=== PATIENT | female | born 1960 | race Caucasian/White ===

== ENCOUNTER → 2020-02-04 09:12 | Outpatient (CLI) | payer OTHER, SELFPAY ==
--- NOTE | ~2020-02-04 | US_ITS ---
EXAMINATION: US right upper quadrant DATE: 02/04/2020 09:36 INDICATION: Abnormal liver function tests. TECHNIQUE: Multiple grayscale and Doppler ultrasound images of the abdomen were obtained. COMPARISON: None FINDINGS: The visualized portions of the head of the pancreas are normal. The liver is normal without focal lesion. No liver surface nodularity. There is normal flow in main portal vein. The gallbladder is absent. The common duct is normal and measures 3 mm. IMPRESSION: 1. Normal right upper quadrant ultrasound status post cholecystectomy. Reviewed, dictated and finalized at location A.
== END ==
DX: R74.8 Abnormal levels of other serum enzymes (principal)
CPT/HCPCS: 76705

== ENCOUNTER 2021-06-17 07:31 | Outpatient (CLI) | payer OTHER, SELFPAY ==
--- NOTE | 2021-06-26 17:32 | WPDSLEEPSTUD ---
Sleep Study Date of Study: 06/17/21 Ordering Provider: Ramya Khoury MD Interpreting Physician: Ramya Khoury MD Sleep Study Type: Polysomnogram Height: 1.63 m Weight: 108.862 kg Body Mass Index: 41.1 Neck Circumference (inches): 17.5 [place]: 2 Reason for Sleep Study Known obstructive sleep study, CPAP fell and broke April 2021. Insurance guidelines required her to re-qualify for a new machine. Sleep History Ade Parsons is a 61-year-old female with a history of obstructive sleep apnea syndrome. Other medical diagnoses include hypertension, atrial fibrillation and GERD. She has been on CPAP for 14 years. Her initial symptoms included loud snoring with frequent waking. In 2014 she had a repeat study with an increase in the pressure to 10 cm. In April of 2021, she dropped her machine and it broke. She has been using a loaner CPAP since then. Because her machine is over 5 years old and there is not documentation of her original sleep study, she has to repeat a sleep study. She is using the loaner CPAP regularly except for the 3 nights leading up to this study, per protocol. She rarely awakens from sleep feeling short of breath. She occasionally awakens at night with heartburn, belching or coughing. She occasionally snores and occasionally this is loud enough for others to complain about it she frequently has trouble sleeping with a cold. She rarely wakes up gasping for breath at night. She occasionally has breathing problems at night observed by others. She rarely sweats excessively at night. She rarely notices her heart pounding or beating irregularly at night, she rarely falls asleep during the day and never falls asleep involuntarily. She does not fall asleep while driving. She does not have loss of muscle tone with strong emotion. She does not have daytime difficulties due to excessive sleepiness. She does not feel paralyzed on waking or falling asleep. She occasionally has vivid dreamlike scenes upon awakening or falling asleep. She does not feel afraid to go to sleep. She occasionally has nightmares. She rarely remembers her dreams. She occasionally has racing thoughts. She does not feel sad or depressed. She occasionally has anxiety. She occasionally has muscular tension and occasionally notices parts of her body jerking. She rarely kicks at night. She frequently has crawling and aching feelings in her legs. She occasionally has leg pain during the night. She rarely has morning jaw pain. She rarely grinds her teeth during sleep. She rarely is bothered by pain during the day and rarely is awakened by pain at night. She frequently wakes up feeling stiff in the morning. She rarely wakes up with sore achy muscles. She rarely wakes up with pain in the neck and spine. She takes antacids regularly. Normal bedtime is 11:00 p.m. falling asleep within 20-30 minutes, typically waking 2-3 times at night. When she does wake at night, she walks around, tries to recall a favorite vacation place, relax and retuen to sleep. She does not mention is she makes a trip to the bathroom. She does not generally take naps. A short nap may be refreshing. She is usually drowsy for 30 minutes after waking. Habits: Never smoked tobacco. No caffeine, alcohol or recreational drugs. [facility] Past Medical History Medical History (Updated 06/26/21 @ 19:56 by Ramya Khoury MD) Afib Breast cancer Stage 1, 2016 GERD (gastroesophageal reflux disease) HTN (hypertension) Obstructive sleep apnea Osteoarthritis Sjogrens syndrome Surgical History Surgical History H/O lumpectomy 2016 left breast s/p radiation History of tonsillectomy 1968 Hx of appendectomy 1970 Hx of cholecystectomy 2005 Social History Social History Smoking status: Never smoker Alcohol intake: never Substance use: never Addition
[2021-06-27 16:02] VITALS: BMI 41.1
== END 2021-06-18 07:08 | disposition home or self-care (01) ==
LOC: ANHCSM 07:32
PROVIDERS: Visit Provider Internal Medicine Critical Care Medicine
DX: G47.33 Obstructive sleep apnea (adult) (pediatric) (principal); G25.81 Restless legs syndrome
CPT/HCPCS: 95810; 95811

== ENCOUNTER 2023-10-30 10:42 | Outpatient (CLI) | payer MEDICARE, SELFPAY ==
--- NOTE | ~2023-10-30 | US_ITS ---
US renal BI 10/30/2023 11:16 Procedure: Realtime transabdominal ultrasound of the kidneys and bladder. Indication: Abnormal renal function Comparison: No prior studies for comparison. Findings: Renal echotexture is normal bilaterally without hydronephrosis, contour deforming mass or r enal calculus. There is a 1.4 cm cyst of the right kidney. The right kidney measures 11.9 cm and left kidney measures 11.7 cm. Bladder within normal limits. Impression: 1: Unremarkable renal ultrasound. No stones, solid masses or hydronephrosis. Reviewed, dictated and finalized at location B. Impression: 1: Unremarkable renal ultrasound. No stones, solid masses or hydronephrosis.
== END 2023-10-30 10:43 ==
PROVIDERS: Visit Provider Internal Medicine Nephrology
DX: R94.4 Abnormal results of kidney function studies (principal)
CPT/HCPCS: 76775